=== PATIENT | male | born 1975 | race Caucasian/White ===

== ENCOUNTER 2022-02-04 14:30 | Emergency (ER) | payer MEDICAID, SELFPAY ==
[2022-02-04 14:31] VITALS: BP 110/73; PULSE 123; RESP 22; TEMP 36.1; O2SAT 94; BMI 25.0
--- NOTE | 2022-02-04 14:47 | EX.ED.SAOD ---
HPI History of Present Illness Chief Complaint: Substance Abuse Informant: patient Onset/Context/Timing Onset: Days Context: Gradual Onset Worsened by: Nothing Relieved by: Nothing Associated Symptoms Associated Symptoms: Negative for vomiting*, diarrhea*, fever*, rash*, seizure, tremor, palpatations, change in mental status, trauma, suicidal ideation and homicidal ideation Narrative Narrative: Resting detox from methamphetamines. Patient states he last used a few days ago. Patient is unsure exactly how much he uses. Patient states his brother gets the methamphetamines and he uses what ever his brother gets. Patient states he either snorts it or smokes it. Patient denies any injectable drug use. Patient denies any nausea or vomiting. Patient denies any seizures or palpitations. Patient denies any tremors. Patient denies any suicidal homicidal ideations. Patient states he currently sees [facility] intensive outpatient program for opiate abuse. Patient states he has been clean from opiates for several months. [facility] Medical History (Updated 02/04/22 @ 14:[address] Eddie Carroll DO) Bipolar 1 disorder Depression GERD (gastroesophageal reflux disease) PTSD (post-traumatic stress disorder) Allergy/AdvReac Type Severity Reaction Status Date / Time Penicillins Allergy Unknown Verified 02/04/22 14:31 Family History no significant family his Surgical History (Updated 02/04/22 @ 14:[address] Eddie Carroll DO) Hx of eye surgery Hx of tonsillectomy Social History (Updated 02/04/22 @ 14:[address] Eddie Carroll DO) Smoking Status: Light Smoker (<10/day) substance use type: methamphetamine ROS ROS ED Constitutional Constitutional ED: Denies chills or fever(s) Eyes Eyes: Denies blurry vision or change in vision ENT ENT ED: Denies rhinorrhea or sore throat Cardiovascular Cardiovascular: Denies chest pain or palpitations Respiratory/Chest Respiratory/Chest: Denies cough or dyspnea Gastrointestinal Gastrointestinal: Denies nausea or vomiting Genitourinary Genitourinary ED: Denies dysuria or hematuria Musculoskeletal Musculoskeletal: Reports back pain; Denies neck pain Integumentary Denies abscess or rash Neurologic Neurologic: Denies headache(s) or weakness Allergic/Immunologic Allergic/Immunologic ED: Denies mouth swelling or urticaria EXAM Physical Exam Const Vital Signs: 02/04/22 14:31 Temperature 96.9 F L Temperature Source Temporal Pulse Rate 123 H Respiratory Rate 22 H Blood Pressure 110/73 Blood Pressure Mean 85 Pulse Ox 94 Oxygen Delivery Method Room Air Positive well nourished and well developed General Appearance ED: well developed HEENT Reports moist mucous membranes Neck supple and no JVD Resp normal respiratory effort and clear to auscultation bilaterally Cardio regular rhythm and no murmurs Rate: tachycardic GI normal to inspection, nondistended, normoactive bowel sounds, soft to palpation and non-tender Extremity normal to inspection General Extremety ED: Negative for edema or tenderness General Extremity: Negative for edema Neuro oriented x3, CN's II-XII intact bilaterally and no sensory deficits noted Sensorium / Orientation: alert Motor Exam: strength 5/5 throughout Psych mental status grossly normal Skin no rashes or lesions noted MDM MDM MDM Narrative Medical decision making narrative: Patient was advised that there is no inpatient treatment for methamphetamine abuse. Patient states he follows with [facility]. Patient was offered a referral to [facility]. Patient was instructed to follow-up in 1 to 2 days. Patient understood and was agreeable with the plan. All questions were answered. Discharge Plan Triage Chief Complaint: Substance Abuse ED Provider: Eddie Carroll Dx/Rx/DC Orders Clinical Impression: Methamphetamine abuse Instructions: ED Drug Abuse Primary Care Provider: Care Physician,No Primary Referrals: Care Physician,No Primary [Primary Care Provider] - [facility] [STAFF PHYSICIAN] - As soon as possible Disposition Disposition: Home, Self Care
== END 2022-02-04 15:04 | disposition home or self-care (01) ==
PROVIDERS: Emergency Provider Emergency Medicine; Visit Provider Emergency Medicine
DX: F15.10 Other stimulant abuse, uncomplicated (principal); F17.200 Nicotine dependence, unspecified, uncomplicated; K21.9 Gastro-esophageal reflux disease without esophagitis
CPT/HCPCS: 99282